=== PATIENT | female | born 1935 | race Caucasian/White ===

== ENCOUNTER 2018-01-29 11:41 | Outpatient (CLI) | payer MEDICARE ==
[2018-01-29 12:15] LABS: #Basophils 0.1 thou/uL (0.0-0.2); #Eosinphils 0.4 thou/uL (0.0-0.7); #Monocytes 0.4 thou/uL (0.11-0.59); #Neutrophils 2.3 thou/uL (1.40-6.50); %Basophils 1.9 % (0.0-1.0); %Eosinophils 8.1 % (0.0-10.0); %Lymphocytes 38.4 % (21.0-51.0); %Monocytes 7.2 % (0.0-10.0); %Neutrophils 44.4 % (42.0-75.0); Hemoglobin 12.1 g/dL (12.0-16.0); Mean Corpuscular HGB CONC 33.9 g/dL (32.0-36.0); Mean Corpuscular Hemoglobin 30.3 pg (27.0-31.0); Mean Corpuscular Volume 89.4 fl (81.0-99.0); Platelet Count 252 thou/uL (130-400); RBC Distribution Width 12.2 % (11.5-14.5); Red Blood Cell (RBC) Count 3.98 mill/uL (4.20-5.40); White Blood Cell (WBC) Count 5.2 thou/uL (4.8-10.8)
[2018-01-29 12:35] LABS: ALT (SGPT) 10 U/L (8-55); AST (SGOT) 14 U/L (5-34); Albumin 4.3 g/dL (3.4-4.8); Alkaline Phosphatase 75 U/L (40-150); Anion Gap 16 mmol/L (10-20); BUN (Urea Nitrogen) 26 mg/dL (9.8-20.1); Bilirubin, Total 0.5 mg/dL (0.2-1.2); Calc. Creatinine Clearance 0 mL/min (70-130); Calcium 9.7 mg/dL (7.8-10.44); Carbon Dioxide 26 mmol/L (23-31); Chloride 106 mmol/L (98-107); Cholesterol 230 mg/dl (< 200 Desired); Estimated GFR-MDRD 36; Glucose 97 mg/dL (83-110); HDL Cholesterol 57 mg/dL (>60 Neg Risk); LDL Cholesterol, Calculated 137 mg/dL; Potassium 4.4 mmol/L (3.5-5.1); Protein, Total 7.3 g/dL (6.0-8.3); Sodium 144 mmol/L (136-145); Triglycerides 182 mg/dL (Less than 150)
[2018-01-29 12:49] LABS: Thyroid Stimulating Hormone 0.4916 uIU/mL (0.35-4.94)
[2018-01-29 19:41] LABS: Bilirubin Negative (Negative); Blood, Urine Negative (Negative); Clarity Clear (Clear); Glucose, Urine (Dipstick) Negative (Negative); Leukocyte Negative (Negative); Nitrite Negative (Negative); Protein, Urine (Dipstick) Negative (Neg-Trace); Urobilinogen 0.2 mg/dL (0.2-1.0); pH, Urine 5.5 (5.0-9.0)
[2018-01-29 19:43] LABS: Specific Gravity, Urine 1.007 (1.002-1.036)
[2018-01-30 15:33] LABS: Free T4 (Free Thyroxine) 0.94 ng/dL (0.70-1.48); Vitamin D, 25 Hydroxy 40.4 ng/ml (> 30.0)
== END 2018-01-29 11:42 | disposition home or self-care (01) ==
LOC: MADLAB 11:41
PROVIDERS: ATTEND Family Medicine
DX: I12.9 Hypertensive chronic kidney disease with stage 1 through stage 4 chronic kidney disease, or unspecified chronic kidney disease (principal); N18.3 Chronic kidney disease, stage 3 (moderate); M81.0 Age-related osteoporosis without current pathological fracture; E03.9 Hypothyroidism, unspecified; E78.5 Hyperlipidemia, unspecified
CPT/HCPCS: 36415; 80053; 80061; 81003; 82306; 84439; 84443; 85025

== ENCOUNTER 2018-12-05 00:24 | Emergency (ER) | payer MEDICARE ==
[2018-12-05 02:02] LABS: #Basophils 0.1 thou/uL (0.0-0.2); #Eosinphils 0.2 thou/uL (0.0-0.7); #Lymphocytes 1.7 thou/uL (1.20-3.40); #Monocytes 0.9 thou/uL (0.11-0.59); #Neutrophils 5.7 thou/uL (1.40-6.50); %Basophils 0.8 % (0.0-1.0); %Eosinophils 2.2 % (0.0-10.0); %Lymphocytes 19.7 % (21.0-51.0); %Monocytes 10.7 % (0.0-10.0); %Neutrophils 66.6 % (42.0-75.0); Hemoglobin 12.6 g/dL (12.0-16.0); Mean Corpuscular HGB CONC 33.5 g/dL (32.0-36.0); Mean Corpuscular Hemoglobin 30.4 pg (27.0-31.0); Mean Corpuscular Volume 90.8 fL (78.0-98.0); Mean Platelet Volume 6.1 fL (7.4-10.4); Platelet Count 253 thou/uL (130-400); RBC Distribution Width 12.7 % (11.5-14.5); Red Blood Cell (RBC) Count 4.15 mill/uL (4.20-5.40); White Blood Cell (WBC) Count 8.5 thou/uL (4.8-10.8)
[2018-12-05 02:21] LABS: ALT (SGPT) Less than 7 U/L (8-55); AST (SGOT) 17 U/L (5-34); Albumin 4.3 g/dL (3.4-4.8); Alkaline Phosphatase 99 U/L (40-150); Anion Gap 16 mmol/L (10-20); BUN (Urea Nitrogen) 22 mg/dL (9.8-20.1); Bilirubin, Total 0.5 mg/dL (0.2-1.2); Calc. Creatinine Clearance 0 mL/min (70-130); Calcium 9.9 mg/dL (7.8-10.44); Carbon Dioxide 28 mmol/L (23-31); Chloride 100 mmol/L (98-107); Estimated GFR-MDRD 34; Globulin 2.8 g/dL (2.4-3.5); Glucose 111 mg/dL (83-110); Potassium 3.2 mmol/L (3.5-5.1); Protein, Total 7.1 g/dL (6.0-8.3); Sodium 141 mmol/L (136-145)
[2018-12-05 02:38] LABS: CKMB 1.5 ng/mL (0-6.6)
--- NOTE | 2018-12-05 08:06 | CT ---
PRELIMINARY REPORT/[facility]/EMERGENCY AFTER HOURS PROCEDURE: EXAM: CT Head Without Contrast EXAM DATE/TIME: 12/05/2018 1:00 AM CLINICAL HISTORY: 83 years old, female; Injury or trauma; Fall; Initial encounter; Blunt trauma (contusions or hematoma s); Consciousness not specified TECHNIQUE: Imaging protocol: Axial computed tomography images of the head/brain without contrast. Coronal and sa gittal reformatted images were created and reviewed. COMPARISON: No relevant prior studies available. FINDINGS: Brain: Small focus of, somewhat linear, probable extraaxial/subarachnoid, hemorrhage in the left thomas eto-occipital region (axial image [id number] and sagittal image [id number]). Bilateral periventricular and subc ortical areas of low attenuation, likely related to chronic small vessel ischemic disease. The ventri cles and overlying cortical sulci are enlarged related to cerebral atrophy. Ventricles: See above. Bones/joints: No acute fracture. Sinuses: No acute findings. No significant air-fluid levels. Mastoid air cells: No acute findings. No mastoid effusion. Soft tissues: No acute findings. IMPRESSION: Left parietooccipital small focus of probable subarachnoid hemorrhage. Cerebral atrophy, small vessel ischemic disease. THIS REPORT CONTAINS FINDINGS THAT MAY BE CRITICAL TO PATIENT CARE. The findings were verbally commun icated via telephone conference with HELLEN CHAUDHARY at 2:20 AM CDT on 12/05/2018. The findings were ac knowledged and understood. Thank you for allowing us to participate in the care of your patient. Dictated and Authenticated by: Sumit Sanford MD 12/05/2018 2:35 AM Central Time ([place] & [place]) FINAL REPORT EMERGENCY AFTER HOURS CT OF BRAIN PERFORMED WITHOUT CONTRAST ENHANCEMENT: Date: 12/05/18 HISTORY: Fall with head injury. FINDINGS: There is generalized ventricular and sulcal prominence. There is decreased attenuation to the periven tricular white matter consistent with chronic white matter change. Some decreased attenuation in the left parietal occipital region which suggests a small amount of subarachnoid blood. I do not see any definite subdural fluid collection. No mass effect. Mastoid air cells and visualized sinuses are alicia r. IMPRESSION: 1. Small focus of subarachnoid bleed over the left parietal occipital region. 2. Atrophy with chronic white matter change. This report is in agreement with the preliminary report issued by [facility]. POS: [facility]
--- NOTE | 2018-12-05 08:11 | CT ---
PRELIMINARY REPORT/[facility]/EMERGENCY AFTER HOURS PROCEDURE: EXAM: CT Chest Without Contrast EXAM DATE/TIME: 12/05/2018 12:57 AM CLINICAL HISTORY: 83 years old, female; Injury or trauma; Fall; Initial encounter; Fracture, traumatic; Closed fracture ; Multiple ribs; Left TECHNIQUE: Imaging protocol: Axial computed tomography images of the chest without intravenous contrast. Coronal and sagittal reformatted images were created and reviewed. COMPARISON: No relevant prior studies available. FINDINGS: Thyroid: Enlarged and nodular left thyroid lobe. Lungs: Nonspecific areas of nodularity in the right lung base measuring up to 1 cm in an area of atel ectasis (series 401, image 81 and series 3, image 29 and 31). Right lower lobe calcified granuloma. M ild biapical scarring. Pleural space: Small left hemothorax. No pneumothorax. Pleural thickening adjacent to the left rib fr actures. Heart: Mild cardiac enlargement. Trace pericardial effusion. Mediastinum: No mediastinal hematoma. Aorta: No thoracic aortic aneurysm. Lymph nodes: No lymphadenopathy. Bones/joints: Acute displaced fractures of the left fourth, fifth, sixth, seventh, eighth ribs. Soft tissues: Mild left lateral chest wall subcutaneous emphysema adjacent to the rib fractures. Kidneys and ureters: Exophytic simple cyst measuring 1.2 cm superior pole of the left kidney. Upper abdomen: No acute findings. IMPRESSION: 1. Acute displaced left rib fractures 4 through 8. Associated pleural thickening and small left hemot horax. No pneumothorax. 2. Nonspecific areas of nodularity in the superior segment of the right lung base, possibly related t o atelectasis. Defer to on-site Radiologist for follow-up recommendations. 3. Enlarged and nodular left thyroid lobe. Defer to on-site Radiologist for follow-up recommendations . Thank you for allowing us to participate in the care of your patient. Dictated and Authenticated by: Christie Yadav MD 12/05/2018 2:04 AM Central Time ([place] & [place]) FINAL REPORT CT CHEST WITHOUT CONTRAST: HISTORY: Left rib injury, status post fall. FINDINGS: There are left 4th through 8th rib fractures, minimally displaced. There is a small amount of left e ffusion, which has some slightly increased attenuation, suggesting blood products. There are no sign s of pneumothorax associated with these findings. There is some subcutaneous air present. There are atelectatic changes in the lung bases. There is some pleural-based density within the righ t lower lobe, potentially a pleural-based nodule, but more likely just on the basis of some atelectat ic change. There is also a granuloma seen in the right lower lobe. The thoracic aorta is tortuous. There is nodularity to the left lobe of the thyroid gland. The visualized liver parenchymal shows no focal findings. The right and left adrenal glands are norm al. IMPRESSION: 1. Left 4th through 8th rib fractures with a small left hemothorax. No pneumothorax identified. 2. Pleural-based nodular area in the right lower lobe. I suspect this is just on the basis of some atelectatic change. 3. Nodularity to the left lobe of the thyroid. This would be better investigated with ultrasound on a nonemergent basis. This report is in agreement with the temporary report that was issued by [facility]. POS: [facility]
== END 2018-12-05 02:01 | disposition short-term general hospital (02) ==
LOC: MADERS 00:24
DX: S22.42XA Multiple fractures of ribs, left side, initial encounter for closed fracture (principal); I10 Essential (primary) hypertension; E78.5 Hyperlipidemia, unspecified; K21.9 Gastro-esophageal reflux disease without esophagitis; F03.90 Unspecified dementia, unspecified severity, without behavioral disturbance, psychotic disturbance, mood disturbance, and anxiety; G20 Parkinson's disease; Z79.899 Other long term (current) drug therapy; Z79.891 Long term (current) use of opiate analgesic; W19.XXXA Unspecified fall, initial encounter
CPT/HCPCS: 36415; 70450; 71250; 80053; 82553; 84484; 85025; 93005

== ENCOUNTER 2019-05-30 14:00 | Outpatient (CLI) | payer MEDICARE ==
[2019-05-30 14:22] LABS: #Basophils 0.1 thou/uL (0.0-0.2); #Eosinphils 0.4 thou/uL (0.0-0.7); #Lymphocytes 1.7 thou/uL (1.20-3.40); #Monocytes 0.4 thou/uL (0.11-0.59); #Neutrophils 2.8 thou/uL (1.40-6.50); %Basophils 1.6 % (0.0-1.0); %Eosinophils 7.3 % (0.0-10.0); %Lymphocytes 31.7 % (21.0-51.0); %Monocytes 7.5 % (0.0-10.0); %Neutrophils 51.9 % (42.0-75.0); Hemoglobin 12.7 g/dL (12.0-16.0); Mean Corpuscular HGB CONC 32.7 g/dL (32.0-36.0); Mean Corpuscular Hemoglobin 29.5 pg (27.0-31.0); Mean Corpuscular Volume 90.2 fL (78.0-98.0); Mean Platelet Volume 5.8 fL (7.4-10.4); Platelet Count 276 thou/uL (130-400); RBC Distribution Width 12.5 % (11.5-14.5); White Blood Cell (WBC) Count 5.4 thou/uL (4.8-10.8)
[2019-05-30 14:42] LABS: ALT (SGPT) 10 U/L (8-55); AST (SGOT) 12 U/L (5-34); Albumin 4.5 g/dL (3.4-4.8); Alkaline Phosphatase 94 U/L (40-110); Anion Gap 16 mmol/L (10-20); BUN (Urea Nitrogen) 20 mg/dL (9.8-20.1); Bilirubin, Total 0.5 mg/dL (0.2-1.2); Calc. Creatinine Clearance 0 mL/min (70-130); Calcium 9.8 mg/dL (7.8-10.44); Carbon Dioxide 27 mmol/L (23-31); Cardiac Risk 3.2 (Less than 4.5); Chloride 103 mmol/L (98-107); Cholesterol 251 mg/dl (< 200 Desired); Estimated GFR-MDRD 38; Glucose 100 mg/dL (83-110); HDL Cholesterol 78 mg/dL (>60 Neg Risk); LDL Cholesterol, Calculated 141 mg/dL; Potassium 3.5 mmol/L (3.5-5.1); Protein, Total 7.5 g/dL (6.0-8.3); Sodium 142 mmol/L (136-145); Triglycerides 158 mg/dL (Less than 150)
== END 2019-05-30 14:01 | disposition home or self-care (01) ==
LOC: MADLAB 14:00
PROVIDERS: ATTEND Family Medicine
DX: D63.1 Anemia in chronic kidney disease (principal); N18.9 Chronic kidney disease, unspecified; M81.0 Age-related osteoporosis without current pathological fracture; G60.3 Idiopathic progressive neuropathy; F02.80 Dementia in other diseases classified elsewhere, unspecified severity, without behavioral disturbance, psychotic disturbance, mood disturbance, and anxiety
CPT/HCPCS: 80053; 80061; 84443; 85025